=== PATIENT | male | born 1980 | race American Indian/Alaskan Native ===

== ENCOUNTER 2017-10-31 02:30 | Emergency (ER) | payer BC, OTHER ==
[2017-10-31 02:30] VITALS: BMI 21.9
[2017-10-31 02:45] VITALS: BP 135/94; PULSE 80; RESP 18; TEMP 98.7; O2SAT 100
[2017-10-31] MEDS ORDERED: Lidocaine 1% Inj (20ml) IJ STA (02:46)
--- NOTE | 2017-10-31 02:47 | ED PDOC ---
Arrival/HPI - General Time Seen by Provider: 10/31/17 02:31 Historian: Patient - History of Present Illness Narrative History of Present Illness (Text): 10/31/17 02:46 37 year old male, with no significant past medical history, presents to the emergency department complaining of a laceration to the left index and middle finger. Patient reports he broke a wine bottle. . Patient denies any fever, chills, nausea, vomiting, diarrhea, back pain, neck pain, headache, dizziness, or any other complaints/injuries. Time/Duration: 1/2 hour Symptom Onset: Sudden Symptom Course: Unchanged Activities at Onset: Light Context: Home Past Medical History - Provider Review Nursing Documentation Reviewed: Yes - Infectious Disease Hx of Infectious Diseases: None - Tetanus Immunization Tetanus Immunization: Unknown - Past Medical History Past Medical History: No Previous - Psychiatric Hx Psychophysiologic Disorder: No Hx Anxiety: No Hx Bipolar Disorder: No Hx Depression: No Hx Emotional Abuse: No Hx Hallucinations: No Hx Panic Disorder: No Hx Post Traumatic Stress Disorder: No Hx Psychosis: No Hx Physical Abuse: No Hx Schizophrenia: No Hx Sexual Abuse: No Hx Substance Use: No - Past Surgical History Past Surgical History: No Previous - Anesthesia Hx Anesthesia: No Hx Anesthesia Reactions: No Hx Malignant Hyperthermia: No - Suicidal Assessment Feels Threatened In Home Enviroment: No Family/Social History - Physician Review Nursing Documentation Reviewed: Yes Family/Social History: No Known Family HX Smoking Status: Light Smoker < 10 Cigarettes Daily Hx Alcohol Use: No Hx Substance Use: No Hx Substance Use Treatment: No Allergies/Home Meds Allergies/Adverse Reactions: Allergies No Known Allergies Allergy (Verified 03/06/15 18:41) Home Medications: Home Meds Medication Instructions Recorded Confirmed No Known Home Med 10/31/17 10/31/17 Review of Systems - Physician Review All systems were reviewed & negative as marked: Yes - Review of Systems Constitutional: absent: Fevers, Other (Chills) Gastrointestinal: absent: Diarrhea, Nausea, Vomiting Musculoskeletal: absent: Back Pain, Neck Pain Skin: Laceration (to the left index and middle finger) Neurological: absent: Headache, Dizziness Physical Exam Vital Signs Reviewed: Yes Vital Signs Temp Pulse Resp BP Pulse Ox 10/31/17 02:44 98.7 F 80 18 135/94 H 100 Temperature: Afebrile Blood Pressure: Normal Pulse: Regular Respiratory Rate: Normal Appearance: Positive for: Well-Appearing, Non-Toxic, Comfortable Pain Distress: None Mental Status: Positive for: Alert and Oriented X 3 - Systems Exam Head: Present: Atraumatic, Normocephalic Pupils: Present: PERRL Extroacular Muscles: Present: EOMI Conjunctiva: Present: Normal Mouth: Present: Moist Mucous Membranes Neck: Present: Normal Range of Motion Respiratory/Chest: Present: Clear to Auscultation, Good Air Exchange. No: Respiratory Distress, Accessory Muscle Use Cardiovascular: Present: Regular Rate and Rhythm, Normal S1, S2. No: Murmurs Abdomen: Present: Normal Bowel Sounds. No: Tenderness, Distention, Peritoneal Signs Back: Present: Normal Inspection Upper Extremity: Present: Normal Inspection. No: Cyanosis, Edema Lower Extremity: Present: Normal Inspection. No: Edema Neurological: Present: GCS=15, CN II-XII Intact, Speech Normal Skin: Present: Warm, Dry, Normal Color, Laceration ((+)1cm laceration on the left second distal digit. ), Other ((+)1/2 cm skin avulsion on the left third distal digit). No: Rashes Psychiatric: Present: Alert, Oriented x 3, Normal Insight, Normal Concentration Medical Decision Making ED Course and Treatment: 10/31/17 02:46 Impression: 37 year old male presents complaining of a 1cm laceration to the left second digit and 1/2cm skin avulsion third digit. Plan: -- Boostrix Vaccine Inj -- Lidocaine 1% -- Left 3 views x-ray -- Reassess and disposition Progress Notes: 10/31/17 03:29 Left 3 View X-Ray Impression: As read by me, no radio opaque foreign body. 10/31/17 03:39 PROCEDURE: LACERATION REPAIR Performed by the emergency provider Location: Left second distal digit Length: 1cm Description: {"clean wound edges","no foreign bodies"} Distal CMS: Normal. No deficits. Neurovascularly intact. Anesthesia: Lidocaine 1%20ml Preparation: The wound was cleaned with NS and Bet[place]. The area was prepped and draped in the usual sterile fashion. Exploration: The wound was explored and no foreign bodies were found. Procedure: The wound was closed with 2 5.0 nylon. Post-Procedure: Good closure and hemostasis. The patient tolerated the procedure well and there were no complications. CSM remains intact. Post procedure dressing applied. - RAD Interpretation Radiology Orders: 10/31/17 02:49 HAND LEFT 3 VIEWS ROUTINE [RAD] Stat - Medication Orders Current Medication Orders: Discontinued Medications Lidocaine HCl (Lidocaine 1% (20ml)) 5 ml IJ STAT STA Stop: 10/31/17 02:47 Last Admin: 10/31/17 03:24 Dose: Tetanus/Reduced Diphtheria/Acell Pertussis (Boostrix Vaccine Inj) 0.5 ml IM .ONCE ONE Stop: 10/31/17 02:53 Last Admin: 10/31/17 03:23 Dose: 0.5 ml MAR Immunization Data Document 10/31/17 03:23 RD (Rec: 10/31/17 03:23 RD [id number]) Immunization Data Vaccine Information Sheet Given Yes Vaccine Information Sheet Given Date 10/31/17 Immunization Registry Document 10/31/17 03:23 RD (Rec: 10/31/17 03:23 RD [id number]) Immunization Registry Consent Date 10/31/17 - Scribe Statement The provider has reviewed the documentation as recorded by the Eliz Dinh Provider Scribe Attestation: All medical record entries made by the Scribe were at my direction and personally dictated by me. I have reviewed the chart and agree that the record accurately reflects my personal performance of the history, physical exam, medical decision making, and the department course for this patient. I have also personally directed, reviewed, and agree with the discharge instructions and disposition. Disposition/Present on Arrival - Present on Arrival Any Indicators Present on Arrival: No History of DVT/PE: No History of Uncontrolled Diabetes: No Urinary Catheter: No History Surgical Site Infection Following: None - Disposition Have Diagnosis and Disposition been Completed?: Yes Diagnosis: Laceration Disposition: HOME/ ROUTINE Disposition Time: 03:00 Condition: STABLE Discharge Instructions (ExitCare): Care For Your Stitches (ED), Laceration (ED) Additional Instructions: please followu p with your doctor. return to er with worsening symptoms or concerns. the stiches need to be removed in 10 days Referrals: [facility] [Outside] - Follow up with primary PCP,NO [Primary Care Provider] - Follow up with primary Forms: [employer] (Malaysian)
[2017-10-31] MEDS ORDERED: TDAP Vaccine 0.5 mL Syr IM ONE (02:52)
--- NOTE | 2017-10-31 11:03 | RAD ---
PROCEDURE: Left Hand Radiographs. HISTORY: trauma, r/o fb COMPARISON: None. FINDINGS: BONES: No fracture foreign body identified. JOINTS: Normal. No osteoarthritic changes. SOFT TISSUES: Soft tissue injury, laceration at the level of the middle phalanx left 3rd digit. No visulaized radiopaque/visualized foreign body. OTHER FINDINGS: None. IMPRESSION: Soft tissue swelling without acute articular or osseous abnormality. No foreign body identified. Concordant results with the preliminary interpretation rendered by the emergency department physician procedure.
== END 2017-10-31 04:06 | disposition home or self-care (01) ==
LOC: ED 02:30
DX: S61.211A Laceration without foreign body of left index finger without damage to nail, initial encounter (principal); F17.210 Nicotine dependence, cigarettes, uncomplicated; Z23 Encounter for immunization

== ENCOUNTER 2017-11-02 12:36 | Emergency (ER) | payer BC, OTHER ==
[2017-11-02 12:36] VITALS: BMI 21.9
[2017-11-02 12:54] VITALS: BP 128/71; PULSE 83; TEMP 98.1; O2SAT 99
[2017-11-02 12:56] VITALS: RESP 18
--- NOTE | 2017-11-02 13:06 | ED PDOC ---
Arrival/HPI - General Chief Complaint: Abnormal Skin Integrity Time Seen by Provider: 11/02/17 13:05 Historian: Patient - History of Present Illness Narrative History of Present Illness (Text): 11/02/17 13:06 This 37 yo male presents to this ED c/o finger pain and requesting pain medication. Patient stated he had finger laceration repaired a couple days ago. Patient denies other complains. Denies fever, wound drainage, or recent trauma. Time/Duration: Other (see hpi) Quality: Aching Context: Home Past Medical History - Provider Review Nursing Documentation Reviewed: Yes - Infectious Disease Hx of Infectious Diseases: None - Tetanus Immunization Tetanus Immunization: Unknown - Past Medical History Past Medical History: No Previous - Psychiatric Hx Psychophysiologic Disorder: No Hx Substance Use: No - Past Surgical History Past Surgical History: No Previous - Anesthesia Hx Anesthesia: No Hx Anesthesia Reactions: No Hx Malignant Hyperthermia: No - Suicidal Assessment Feels Threatened In Home Enviroment: No Family/Social History - Physician Review Nursing Documentation Reviewed: Yes Family/Social History: Other (noncontributory) Smoking Status: Light Smoker < 10 Cigarettes Daily Hx Alcohol Use: No Hx Substance Use: No Hx Substance Use Treatment: No Allergies/Home Meds Allergies/Adverse Reactions: Allergies No Known Allergies Allergy (Verified 11/02/17 12:49) Review of Systems - Review of Systems Constitutional: Normal. absent: Fatigue, Weight Change, Fevers Eyes: Normal ENT: Normal Respiratory: Normal Cardiovascular: Normal Gastrointestinal: Normal Genitourinary Male: Normal Musculoskeletal: Other (see hpi) Skin: Normal Neurological: Normal Endocrine: Normal Hemo/Lymphatic: Normal Psychiatric: Normal Physical Exam Vital Signs Temp Pulse Resp BP Pulse Ox 11/02/17 12:55 98.1 F 83 18 128/71 99 11/02/17 12:49 98.1 F 83 16 128/71 99 Temperature: Afebrile Blood Pressure: Normal Pulse: Regular Respiratory Rate: Normal Appearance: Positive for: Well-Appearing, Non-Toxic, Comfortable Pain Distress: None Mental Status: Positive for: Alert and Oriented X 3 - Systems Exam Head: Present: Atraumatic, Normocephalic Pupils: Present: PERRL Extroacular Muscles: Present: EOMI Conjunctiva: Present: Normal Mouth: Present: Moist Mucous Membranes Upper Extremity: Present: Normal ROM, NORMAL PULSES, Neurovascularly Intact, Capillary Refill < 2s, Other ((+) sutures in palce on left inedx finger.). No: Cyanosis, Edema, Swelling, Erythema, Temperature Abnormalties Lower Extremity: Present: Normal Inspection, Normal ROM Neurological: Present: GCS=15, CN II-XII Intact, Speech Normal Skin: Present: Warm, Dry, Normal Color. No: Rashes Psychiatric: Present: Alert, Oriented x 3, Normal Insight, Normal Concentration Medical Decision Making ED Course and Treatment: 11/02/17 13:33 Patient requesting for stronger pain medication prescription. I told him that Opiods pain medication are not recommended for finger laceration pain. Patient insisted for Opiods. Wound dressing was performed on wound. Patient was recommended to follow up his pmd in 1-2 days, and to have sutures removed in 7-8 days. To return to ED if pain worsen or infection occurs. Re-evaluation Time: 13:34 Reassessment Condition: Re-examined, Improved - Medication Orders Current Medication Orders: Discontinued Medications Ibuprofen (Motrin Tab) 600 mg PO STAT STA Stop: 11/02/17 13:10 Last Admin: 11/02/17 13:19 Dose: 600 mg MAR Pain/Vitals Document 11/02/17 13:19 EQ (Rec: 11/02/17 13:19 EQ [id number]) Pain Reassessment Is This A Pain ReAssessment? No Sleep Is patient sleeping during reassessment? No Presence of Pain Presence of Pain Yes Pain Scale Used Pain Scale Used Numeric Disposition/Present on Arrival - Present on Arrival Any Indicators Present on Arrival: No History of DVT/PE: No History of Uncontrolled Diabetes: No Urinary Catheter: No History of Decub. Ulcer: No History Surgical Site Infection Following: None - Disposition Have Diagnosis and Disposition been Completed?: Yes Diagnosis: Encounter for wound re-check, Finger pain Disposition: HOME/ ROUTINE Disposition Time: 13:35 Patient Plan: Discharge Condition: GOOD Discharge Instructions (ExitCare): Care For Your Stitches (ED) Additional Instructions: Call private doctor for follow up visit in 2 days. Clean wound daily with soap and water. Take medication as instructed with food. Return to emergency if pain worsen or unable to see your doctor. Prescriptions: Ibuprofen [Motrin] 600 mg PO Q8 PRN #20 tab PRN Reason: Pain, Severe (8-10) Referrals: PCP,NO [Primary Care Provider] - Follow up with primary [facility] [Outside] - Follow up with primary [facility] [Outside] - Follow up with primary Forms: [employer] (Portuguese), WORK NOTE
== END 2017-11-02 13:42 | disposition home or self-care (01) ==
LOC: ED 12:36
DX: Z51.89 Encounter for other specified aftercare (principal); M79.645 Pain in left finger(s)